=== PATIENT | female | born 1985 | race Caucasian/White ===

== ENCOUNTER 2018-07-12 00:26 | Emergency (ER) | payer BC, OTHER | END 2018-07-12 01:03 | disposition home or self-care (01) | LOC: BURERS 00:26 | DX: H60.91 Unspecified otitis externa, right ear (principal); F41.9 Anxiety disorder, unspecified; F17.210 Nicotine dependence, cigarettes, uncomplicated | CPT/HCPCS: 99282 ==

== ENCOUNTER 2018-10-09 18:19 | Emergency (ER) | payer BC ==
[2018-10-09 19:15] LABS: ALT (SGPT) 23 U/L (8-55); AST (SGOT) 13 U/L (5-34); Albumin 3.9 g/dL (3.5-5.0); Alkaline Phosphatase 82 U/L (40-150); Anion Gap 12 mmol/L (10-20); BUN (Urea Nitrogen) 19 mg/dL (7.0-18.7); Bilirubin, Total 0.7 mg/dL (0.2-1.2); Calc. Creatinine Clearance 0 mL/min (70-130); Calcium 9.2 mg/dL (7.8-10.44); Carbon Dioxide 24 mmol/L (22-29); Chloride 104 mmol/L (98-107); Estimated GFR-MDRD 74; Globulin 2.6 g/dL (2.4-3.5); Glucose 124 mg/dL (70-105); Potassium 4.2 mmol/L (3.5-5.1); Protein, Total 6.5 g/dL (6.0-8.3); Sodium 136 mmol/L (136-145)
[2018-10-09] MEDS ORDERED: Piperacillin/Tazobactam 4.5 GM VIAL ONE (19:15)
[2018-10-09] MEDS ORDERED: Acetaminophen 500 MG TAB ONE (19:15)
[2018-10-09 19:29] LABS: Hemoglobin 10.6 g/dL (12.0-16.0); Mean Platelet Volume 8.1 fL (7.4-10.4); Platelet Count 16 thou/uL (130-400); RBC Distribution Width 14.3 % (11.5-14.5); Red Blood Cell (RBC) Count 3.41 mill/uL (4.20-5.40); White Blood Cell (WBC) Count 0.5 thou/uL (4.8-10.8)
[2018-10-09 19:32] LABS: Manual Diff?? YES
[2018-10-09 19:33] LABS: Lymphocytes 90 % (21-51); MDiff Complete? YES; Neutrophil 6 % (42-75); Reactive Lymphocytes 4 % (0-10)
[2018-10-09] MEDS ORDERED: diphenhydrAMINE 25 MG CAP ONE (21:28)
--- NOTE | 2018-10-09 21:59 | RAD ---
PORTABLE CHEST: 10/09/18 Comparison with an 01/05/18 study shows no adverse change. The heart is normal in size and the lungs a re clear. No infiltrate or effusion was seen. The right subclavian catheter remains in place with its tip in the distal SVC. IMPRESSION: No acute thoracic finding. POS: HOME
== END 2018-10-09 21:30 | disposition short-term general hospital (02) ==
LOC: BURERS 18:19
DX: D70.9 Neutropenia, unspecified (principal); R50.81 Fever presenting with conditions classified elsewhere; D64.9 Anemia, unspecified; C41.9 Malignant neoplasm of bone and articular cartilage, unspecified; F41.9 Anxiety disorder, unspecified; F17.210 Nicotine dependence, cigarettes, uncomplicated
CPT/HCPCS: 36415; 71045; 80053; 83605; 85025; 87040; 96365; 96367; J2543; J3370; Q0163

== ENCOUNTER 2019-01-04 18:06 | Emergency (ER) | payer BC ==
--- NOTE | 2019-01-04 19:22 | RAD ---
STERNUM FOUR VIEWS: 01/04/2019 PROVIDED CLINICAL HISTORY: Sternal pain. FINDINGS: No definite evidence for fracture or other acute osseous abnormality. If there is persistent clinica l concern, conservative management and follow-up imaging are advised. IMPRESSION: As above. POS: [facility]
== END 2019-01-04 19:20 | disposition home or self-care (01) ==
LOC: BURERS 18:06
DX: S29.011A Strain of muscle and tendon of front wall of thorax, initial encounter (principal); F41.9 Anxiety disorder, unspecified; F17.210 Nicotine dependence, cigarettes, uncomplicated; Z79.899 Other long term (current) drug therapy; X50.9XXA Other and unspecified overexertion or strenuous movements or postures, initial encounter
CPT/HCPCS: 71120